=== PATIENT | male | born 1995 | race African-American/Black ===

== ENCOUNTER 2023-06-09 00:45 | Emergency (ER) | payer OTHER ==
[2023-06-09 01:04] VITALS: BP 131/82; PULSE 76; RESP 20; TEMP 97.9; BMI 15.8
[2023-06-09] MEDS ORDERED: KETOROLAC TROMETHAMINE 30 MG/1 ML VIAL IM ONE (01:48)
[2023-06-09] MEDS ORDERED: KETOROLAC TROMETHAMINE 60 MG/2 ML VIAL ONE (01:59)
== END 2023-06-09 02:23 | disposition home or self-care (01) ==
LOC: JER 00:45
PROC: 3E0233Z Introduction of Anti-inflammatory into Muscle, Percutaneous Approach (ICD-10-PCS; principal; 2023-06-09)
DX: J02.9 Acute pharyngitis, unspecified (principal); Z20.822 Contact with and (suspected) exposure to COVID-19
CPT/HCPCS: 0241U-QW; 87651; 99284-25